=== PATIENT | female | born 1990 | race Caucasian/White ===

== ENCOUNTER 2020-11-11 09:50 | Emergency (ER) | payer OTHER ==
[2020-11-11 10:01] VITALS: BP 128/69; PULSE 89; TEMP 97.9; BMI 25.6
== END 2020-11-11 12:01 | disposition home or self-care (01) ==
LOC: JER 09:50
DX: L50.0 Allergic urticaria (principal); F41.9 Anxiety disorder, unspecified
CPT/HCPCS: 99281-25